=== PATIENT | male | born 1985 | race Caucasian/White ===

== ENCOUNTER 2022-01-06 07:49 | Outpatient (CLI) | payer BC, SELFPAY ==
--- NOTE | ~2022-01-06 | XR_ITS ---
EXAMINATION: XR UGIAC w small bowel DATE: 01/06/2022 08:58 INDICATION: Epigastric abdominal pain. TECHNIQUE: The patient drank thick barium, gas-producing crystals, and thin barium. Fluoroscopy of th e esophagus, stomach, and small bowel was performed. Fluoroscopy exposure time was 0.8 minutes. Radio graphs of the abdomen were obtained. The total number of images was 497. COMPARISON: CT abdomen and pelvis 06/20/2018 FINDINGS: UPPER GASTROINTESTINAL SERIES: There is no mass or stricture of the esophagus. Esophageal motility is normal. There is no hiatal her davida. There was no gastroesophageal reflux with provocative maneuvers. The stomach shows a normal fold ing pattern. SMALL BOWEL SERIES: The small bowel shows a normal folding pattern. Specifically, the terminal ileum is normal. Transit t hemant to the colon was 30 minutes. IMPRESSION: 1. Normal upper gastrointestinal series. 2. Normal small bowel series. Reviewed, dictated and finalized at location A.
[2022-01-06 09:53] LABS: Basophils Percent Auto 0.7 % (0.2-1.2); Eosinophils Absolute Auto 0.3 K/mm3 (0-0.3); Eosinophils Percent Auto 5.3 % (0-4.4); Hematocrit 44.1 % (42.0-52.0); Hemoglobin 15.5 g/dL (14.0-18.0); Immature Granulocyte Absolute 0.02 K/mm3 (0.00-0.031); Immature Granulocyte Percent A 0.4 % (0-0.5); Lymphocytes Absolute Auto 1.98 K/mm3 (0.9-3.2); Lymphocytes Percent Auto 35.9 % (18.3-44.2); Mean Corpuscular HGB Conc 35.1 g/dl (32-36); Mean Corpuscular Volume 88.2 fl (80-100); Monocytes Absolute Auto 0.4 K/mm3 (0.1-0.6); Neutrophils Absolute Auto 2.8 K/mm3 (1.3-6.7); Neutrophils Percent Auto 49.7 % (45.5-73.1); Platelet Count Result 157 k/mm3 (150-375); Red Cell Distribution Width 12.5 % (11.5-14.5); White Blood Count 5.5 K/mm3 (4.5-10.0)
[2022-01-06 10:07] LABS: Appearance Urine Clear (Clear); Bilirubin Urine Negative (Negative); Blood Urine Negative (Negative); Color Urine Yellow (Yellow); Glucose Urine UA Negative (Negative); Ketones Urine Negative (Negative); Leukocyte Esterase Ur Negative LEU/UL (Negative); Nitrate Urine Negative (Negative); Protein Urine Negative (Negative); Urobilinogen Urine 0.2 mg/dL (<2.0)
[2022-01-06 10:11] LABS: Alanine Aminotransferase 37 U/L (6-50); Albumin Level 4.6 g/dL (3.5-5.1); Alkaline Phosphatase 64 U/L (38-126); Amylase 67 U/L (30-110); Anion Gap 12 mmol/L (8-16); Aspartate Amino Transferase 29 U/L (17-59); Bilirubin,Total 0.9 mg/dL (0.2-1.3); Blood Urea Nitrogen 8 mg/dL (9-20); Calcium 8.8 mg/dL (8.4-10.2); Carbon Dioxide 33 mmol/L (22-30); Chloride 98 mmol/L (98-107); Cholesterol 183 mg/dL (0-200); Estimated Glomerular Filt Rate > 60; Glucose 101 mg/dL (65-110); HDL Direct 56 mg/dL; Lipase 31 U/L (23-300); Potassium 4.2 mmol/L (3.4-5.0); Sodium 143 mmol/L (137-145); Triglycerides 250 mg/dL (<150)
[2022-01-06 10:12] LABS: Add Urine Microscopic? NO
[2022-01-06 10:22] LABS: LDL Cholesterol Direct 90 mg/dL
[2022-01-06 10:41] LABS: Free T4 Free Thyroxine 0.86 ng/mL (0.78-2.19); Vitamin D 25 Hydroxy 47.3 ng/mL
[2022-01-06 10:46] LABS: IFOB Positive Control Positive; Immunochemical Fecal Occult Bl Negative (N)
[2022-01-12 12:21] LABS: Testosterone Total 315 ng/dL (250-1100)
== END 2022-01-06 07:50 | disposition home or self-care (01) ==
PROVIDERS: PCP Internal Medicine; Visit Provider Internal Medicine
DX: R10.13 Epigastric pain (principal)
CPT/HCPCS: 36415; 74246; 74248; 80053; 80061; 81003; 82150; 82274; 82306; 83690; 83993; 84403; 84439; 84443; 85025; 87015; 87045; 87177; 87207; 87209; 87269; 87272; 87427; 87493; 89055

== ENCOUNTER 2022-01-12 09:08 | Outpatient (NON) | payer BC, SELFPAY ==
[2022-01-12 12:36] LABS: IFOB Positive Control Positive; Immunochemical Fecal Occult Bl Negative (N)
== END 2022-01-12 09:09 | disposition home or self-care (01) ==
PROVIDERS: PCP Internal Medicine; Visit Provider Internal Medicine
DX: A04.5 Campylobacter enteritis (principal)
CPT/HCPCS: 82274; 87015; 87045; 87177; 87207; 87209; 87269; 87272; 87427; 89055

== ENCOUNTER 2022-11-21 11:55 | Outpatient (CLI) | payer BC, SELFPAY ==
[2022-11-21 12:18] LABS: Basophils Percent Auto 0.7 % (0.2-1.2); Eosinophils Absolute Auto 0.3 K/mm3 (0-0.3); Eosinophils Percent Auto 4.4 % (0-4.4); Hematocrit 46.7 % (42.0-52.0); Hemoglobin 16.4 g/dL (14.0-18.0); Immature Granulocyte Absolute 0.01 K/mm3 (0.00-0.031); Immature Granulocyte Percent A 0.2 % (0-0.5); Lymphocytes Percent Auto 37.7 % (18.3-44.2); Mean Corpuscular HGB Conc 35.1 g/dl (32-36); Mean Corpuscular Hemoglobin 31.1 pg (26-34); Mean Corpuscular Volume 88.6 fl (80-100); Mean Platelet Volume 11.2 fl (7.4-10.4); Monocytes Absolute Auto 0.5 K/mm3 (0.1-0.6); Monocytes Percent Auto 7.9 % (2.6-8.5); Neutrophils Percent Auto 49.1 % (45.5-73.1); Platelet Count Result 161 k/mm3 (150-375); Red Blood Count 5.27 M/mm3 (4.6-6.20); Red Cell Distribution Width 12.3 % (11.5-14.5); White Blood Count 6.1 K/mm3 (4.5-10.0)
[2022-11-21 12:19] LABS: Appearance Urine Clear (Clear); Bilirubin Urine Negative (Negative); Blood Urine Negative (Negative); Color Urine Yellow (Yellow); Glucose Urine UA Negative (Negative); Ketones Urine Negative (Negative); Leukocyte Esterase Ur Negative LEU/UL (Negative); Nitrate Urine Negative (Negative); Protein Urine Negative (Negative); Specific Grav Ur 1.004 (1.001-1.035); Urobilinogen Urine 0.2 mg/dL (<2.0); pH Urine 7.5 (5.0-9.0)
[2022-11-21 12:31] LABS: Add Urine Microscopic? NO
[2022-11-21 12:53] LABS: Alanine Aminotransferase 53 U/L (6-50); Albumin Level 4.8 g/dL (3.5-5.1); Alkaline Phosphatase 60 U/L (38-126); Amylase 71 U/L (30-110); Anion Gap 5 mmol/L (8-16); Aspartate Amino Transferase 35 U/L (17-59); Bilirubin,Total 1.1 mg/dL (0.2-1.3); Blood Urea Nitrogen 14 mg/dL (9-20); Calcium 9.5 mg/dL (8.4-10.2); Carbon Dioxide 35 mmol/L (22-30); Chloride 100 mmol/L (98-107); Cholesterol 180 mg/dL (0-200); Estimated Glomerular Filt Rate > 60; Glucose 93 mg/dL (65-110); HDL Direct 53 mg/dL; Lipase 31 U/L (23-300); Potassium 4.4 mmol/L (3.4-5.0); Sodium 140 mmol/L (137-145); Triglycerides 189 mg/dL (<150)
[2022-11-21 13:03] LABS: LDL Cholesterol Direct 88 mg/dL
== END 2022-11-21 11:56 | disposition home or self-care (01) ==
PROVIDERS: PCP Internal Medicine; Visit Provider Internal Medicine
DX: R07.89 Other chest pain (principal); A04.5 Campylobacter enteritis; F41.1 Generalized anxiety disorder; R10.13 Epigastric pain; K21.9 Gastro-esophageal reflux disease without esophagitis; Z68.27 Body mass index [BMI] 27.0-27.9, adult
CPT/HCPCS: 36415; 80053; 80061; 81003; 82150; 82306; 83690; 84439; 84443; 85025

== ENCOUNTER 2024-02-29 08:34 | Outpatient (CLI) | payer BC, SELFPAY ==
--- NOTE | ~2024-02-29 | XR_ITS ---
XR elbow LT min 3V 02/29/2024 08:44 Indication: Left elbow pain Procedure: 4 views left elbow Comparison: No prior studies for comparison. Findings: There is anatomic alignment. No fracture, subluxation or dislocation. No joint effusion. Pr ominent osteophyte of the olecranon process. Impression: 1: No significant bone or joint abnormality. Reviewed, dictated and finalized at location B. Impression: 1: No significant bone or joint abnormality.
== END 2024-02-29 08:35 | disposition home or self-care (01) ==
PROVIDERS: PCP Internal Medicine; Visit Provider Internal Medicine
DX: M25.522 Pain in left elbow (principal)
CPT/HCPCS: 73080

== ENCOUNTER 2025-02-10 14:39 | Outpatient (CLI) | payer SELFPAY ==
--- OUTSIDE RECORDS SUMMARY | 2024-09-05 04:30 | XMS_ITS ---
Author Organization [facility] Address [address] [place] [address] Care Team Providers Care Junior Paralegal Name Role Phone Bryce Temple MD Primary Care Provider Unavaila NILTON Matos Unavailable [phone] Encounters Encounter Location Date Provider Diagnosis [facility] [address] [place] [address] 09/05/2024 NILTON CLEARY Plan Of Treatment No Information Progress Notes * Alfreda ALVARENGAOB:1985 ( 40 yo M)Acc No.[id number]:09/05/2024 Progress Notes Patient: Sky Parks Provider: Asim Cleary MD :1985 A ge:39 Y S ex:Male Date:09/05/2024 Address:[address] [facility] Pcp:Bryce Temple MD * Electronic signature of ADIA CLEARY MD on 02/10/2025 at 03:53 PM CDT Sign off status: Pending * Provider: Asim Cleary MD Date: 0 09/05/2024 Generated for Rolando burger/Reggie/eTransmitting on: 1 03:53 PM CDT
[2025-02-10 15:52] LABS: Hematocrit 44.5 % (42.0-52.0); Hemoglobin 15.4 g/dL (14.0-18.0); Immature Granulocyte Percent A 0.3 % (0-0.5); Lymphocytes Absolute Auto 2.46 K/mm3 (0.9-3.2); Mean Corpuscular HGB Conc 34.6 g/dl (32-36); Mean Corpuscular Hemoglobin 30.5 pg (26-34); Mean Corpuscular Volume 88.1 fl (80-100); Nucleated Red Blood Cells Absolute Auto 0.000 K/mm3 (0.0-0.012); Nucleated Red Blood Cells Perc 0.0 % (0.0-0.2); Platelet Count Result 171 k/mm3 (150-375); Red Blood Count 5.05 M/mm3 (4.6-6.20); White Blood Count 7.9 K/mm3 (4.5-10.0)
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
--- OUTSIDE RECORDS SUMMARY | 2025-02-10 15:54 | XMS_ITS | Clinical Summary ---
Author Organization [facility] Address [address] [place] [address] Care Team Providers Care Grading Supervisor Name Role Phone Bryce Temple MD Primary Care Provider [phone] Source Comments [facility],non-owned Affiliates and Associated Physician Practices is amultiple site organization consisting of ambulatory clinics and hospital sitesin [place], [place], [place] and [place]. This disclosure is being madepursuant to the Care Everywhere program and may not contain all information available regarding this patient. Last updated 18.[facility] Allergies Active Allergy Reactions Criticality Noted Date Comments Ciprofloxacin Itching Low 02/16/2020 Naproxen Other Low 01/22/2020 Medications * Be aware that medications may not be up to date on this document. Alwaysverify current medications with the patient. fluticasone propionate (FLONASE) 50 MCG/ACT nasal spray Taylor 1 spray into each nostril once daily as needed Active Cyanocobalamin (VITAMIN B12) 100 MCG Active Albion-3 Fatty Acids (FISH OIL) 1000 MG capsule Take by mouth as needed Active Cholecalciferol (VITAMIN D3) 10 MCG (400 UNIT) Activ e omeprazole EC (PRILOSEC OTC) 20 MG tablet Take 10 mg by mouth once daily 07/01/2020 Active Magnesium 100 MG Take by mouth as needed Active Cannabinoids (THC FREE) 20 MG/ML LIQD Take by mouth at bedtime Active Active Problems Problem Noted Date Diagnosed Date Gastroesophageal reflux disease without esophagi tis 11/08/2019 Eczema 11/08/2019 Family History Medical History Relation Name Comments Pulmonary Embolism Father Arthritis - Rheumatoid Mother Heart Failure Mother Cancer - Colon Paternal Grandfather Relation Name Status Comments Brother Alive Father Mother Alive Paternal Grandfather Alive Social History Tobacco Use Types Packs/Day Years Used Date Smoking Tobacco: Some Days Cigarettes Smokeless Tobacco: Never Alcohol Use Standard Drinks/Week Comments Yes 0 (1 standard drink = 0.6 oz pur e alcohol) socially Sex and Gender Information Value Date Recorded Sex Assigned at Not on file Legal Sex Male 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 Gender Identity Not on file Sexual Orientation Not on file Last Filed Vital Signs Vital Sign Reading Time Taken Comments Blood Pressure 110/60 02/02/2021 10:16 AM CDT Pulse 87 02/02/2021 10:16 AM CDT Temperature 36.7 C (98.1 F) 02/02/2021 10:16 AM CDT Respiratory Rate 18 09/29/2020 2:11 PM CDT Oxygen Saturation 97% 02/02/2021 10:16 AM CDT Inhaled Oxygen Concentration - - Weight 83.6 kg (184 lb 6.4 oz) 02/02/2021 10:16 AM CDT Height 175.3 cm (5' 9) 09/29/2020 2:11 PM CDT Body Mass Index 27.23 09/29/2020 2:11 PM CDT Plan of Treatment Health Maintenance Due Date Last Done Comments LIPID TESTING 1985 HIV SCREENING 02/05/2000 HEPATITIS C SCREENING 01/31/2003 DTAP/TDAP/TD VACCINES (1 - Tdap) 02/05/2004 HEPATITIS B VACCINE (1 of 3 - 19+ 3-dose series) 02/05/2004 HPV VACCINE (1 - 3-dose SCDM series) 02/05/2012 DEPRESSION SCREENING 05/07/2024 COVID-19 VACCINE (3 - 2024-2 6 season) 2025 09/21/2020, 08/31/2020 INFLUENZA VACCINE (#1) 2025 ZOSTER VACCINE (1 of 2) 2035 HIB VACCINE Aged Out No longer eligi ble based on patient's age to complete this topic MENINGOCOCCAL (Group B) VACCINE SHARED DECISION-MAKING Aged Out No longer eligible based on patient's age to complete this topic MENINGOCOCCAL GROUPS A/C/Y/W VACCINE Aged Out No longer eligible b ased on patient's age to complete this topic PNEUMOCOCCAL VACCINE Aged Out No long er eligible based on patient's age to complete this topic Insurance ANTHEM ANTHEM Care Teams Grading Supervisor Relationship Specialty Start Date End Date Bryce Temple MD PCP - General 07/20/20
--- OUTSIDE RECORDS SUMMARY | 2025-02-10 15:54 | XMS_ITS | Patient Health Record ---
Author Organization [facility] Address [address] [place] [address] Care Team Providers Care Clinic Lpn Name Role Phone Bryce Temple MD Primary Care Provider NILTON Meadows Unavailable [phone] Allergies No Known Allergies Reason For Referral No Information Medications Medication SIG (Take, Route, Frequency, Duration) Notes Start Date End Date Status Omeprazole 20 MG Capsule Delayed Release 1 capsule 1/2 to 1 hour before morning meal Orally Once a day Active Social History Tobacco Use: Social History Observation Description Date Details (start date - stop date) Never Smoker NA - NA Social History Drugs/Alcohol: Social Info Question Answer Notes Caffeine Intake: 1-2 cups per day Tobacco Use: Social Info Question Answer Notes Tobacco Control (Standard) Tobacco use: Nonsmoker Additional Details Category Social Info Options Details Drugs/Alcohol: Do you smoke marijuana? De nies Do you drink alcohol? Yes, BEER 8 CUPS A WEEK Problems Problem Type SNOMED Code ICD Code Onset Dates Problem Status W/U Status Risk Notes Problem Ataxic gait (37889584) Ataxic gait (R26.0) Active confirmed Problem Obesity (776806094) Class 1 obesity due to excess calories with serious comorbidity and body mass index (BMI) of 30.0 to 30.9 in adult (E66.09) Active confirmed Vital Signs Heart Rate 79 /min 09/05/2024 Respiratory Rate 16 /min 09/05/2024 Blood pressure diastolic 67 mm Hg 09/05/2024 Height 69 in 09/17/2024 Blood pressure systolic 132 mm Hg 09/05/2024 Weight 202 lbs 09/05/2024 BMI 29.83 kg/m2 09/05/2024 Encounters Encounter Location Date Provider Diagnosis [facility] [address] [place] [address] 09/05/2024 NILTON CLEARY [address] [place] [address] 09/01/2024 NILTON EVIN Dizziness and giddiness R42 ; Class 1 obesity due to excess calories with serious comorbidity and body mass index (BMI) of 30.0 to 30.9 in adult E66.09 ; Family history of ischemic heart disease and other diseases of the circulatory system Z82.49 ; Dyspnea R06.00 and Ataxic gait R26.0 [facility] [address] [place] [address] 09/05/2024 NILTON EVIN Dizziness and giddiness R42 ; Class 1 obesity due to excess calories with serious comorbidity and body mass index (BMI) of 30.0 to 30.9 in adult E66.09 ; Family history of ischemic heart disease and other diseases of the circulatory system Z82.49 ; Dyspnea R06.00 and Ataxic gait R26.0 [facility] [address] [place] [address] 09/01/2024 NILTON EVIN [facility] [address] [place] [address] 09/17/2024 NILTON EVIN [facility] [address] [place] [address] 09/22/2024 NILTON EVIN Dyspnea R06.00 and Ataxic gait R26.0 Assessments Encounter Date Diagnosis (ICD Code) Assessment Notes Treatment Notes Treatment Clinical Notes Section Notes 09/01/2024 Dizziness and giddiness (ICD-10 - R42) ccheck carotids duplex,cimt 09/01/2024 Class 1 obesity due to excess calories with serious comorbidity and body mass index (BMI) of 30.0 to 30.9 in adult (ICD-10 - E66.09) 09/05/2024 Dizziness and giddiness (ICD-10 - R42) 09/22/2024 Dyspnea (ICD-10 - R06.00) 09/22/2024 Ataxic gait (ICD-10 - R26.0) 09/05/2024 Class 1 obesity due to excess calories with serious comorbidity and body mass index (BMI) of 30.0 to 30.9 in adult (ICD-10 - E66.09) 09/01/2024 Family history of ischemic heart disease and other diseases of the circulatory system (ICD-10 - Z82.49) Check extensive labs 09/01/2024 Dyspnea (ICD-10 - R06.00) eview other previous tests r 09/05/2024 Family history of ischemic heart disease and other diseases of the circulatory system (ICD-10 - Z82.49) 09/05/2024 Dyspnea (ICD-10 - R06.00) 09/01/2024 Ataxic gait (ICD-10 - R26.0) 09/05/2024 Ataxic gait (ICD-10 - R26.0) Carotids ok,But has relatively high risk cimt,will obtain labs,will need lifestyle changes Discussed weight management strategies including: Low carbohydrate, sugar and processed foods Adequate protein 30-40gm per meal High fiber diet 20-30gm/ day Water - 100-120oz daily Vegetables - 6servings/day. Increase aerobic and strength/resist ance exercise to the goal of 150min/week. Plan Of Treatment Pending Test Test Name Order Date Lipid Panel 09/22/2024 Galectin-3 09/22/2024 Insurance Providers Payer Name Payer Address Payer Phone Subscriber Number Group Number Insured Name Patient Relationship to Insured Coverage Start Date Coverage End Date [facility] [address] [place], [place] [id number] Sky Alvarenga Self - patient is the insured Medical (General) History Medical History History ICD Code ASTHMA Surgical History Surgery Date(Month/Year) STERNUM HERNIA SKIN GRAPH CLAVELE Z-PLASTY HYDROSEAL
--- OUTSIDE RECORDS SUMMARY | 2025-02-10 15:54 | XMS_ITS | Clinical Summary ---
Author Organization [facility] Address [address] [place] [address] Care Team Providers Care Vegetable Cutter Name Role Phone Unavailable Primary Care Provider Unavailabl e Social History Tobacco Use Types Packs/Day Years Used Date Smoking Tobacco: Never Assessed Sex and Gender Information Value Date Recorded Sex Assigned at Not on file Legal Sex Male 2:56 PM CDT Gender Identity Not on file Sexual Orientation Not on file Plan of Treatment Health Maintenance Due Date Last Done Comments Annual Physical 02/05/1988 Hepatitis C 2003 DTaP, Tdap and Td Vaccines ( 1 - Tdap) 02/05/2004 Hepatitis B Vaccines (1 of 3 - 19+ 3-dose series) 02/05/2004 HPV Vaccines (1 - 3-dose SCD M series) 02/05/2012 COVID-19 Vaccine (1 - 2023-2 5 season) 2025 Influenza Adult (#1) 2025 Meningococcal B Vaccine Aged Out No l onger eligible based on patient's age to complete this topic Meningococcal Vaccine Aged Out No hayden heron eligible based on patient's age to complete this topic Pneumococcal Vaccine: Pediat rics (0 to 5 Years) and At-Risk Patients (6 to 49 Years) Aged Out No longer eligible b ased on patient's age to complete this topic RSV Immunizations Under 20 Months Aged Out No longer eligible based on patient's age to complete this topic
--- OUTSIDE RECORDS SUMMARY | 2025-02-10 15:54 | XMS_ITS | Clinical Summary ---
Author Organization [facility] Address [address] [address] Phone Care Team Providers Care Car Rental Agency Manager Name Role Phone Provider, None Primary Care Provider Unavailabl e Allergies No known active allergies Medications No known medications Active Problems Problem Noted Date Diagnosed Date Hypertriglyceridemia 12/31/2015 Grieving 12/17/2015 Family History Medical History Relation Name Comments Diabetes Father Hypertension Father Relation Name Status Comments Father Mother Alive Social History Tobacco Use Types Packs/Day Years Used Date Smoking Tobacco: Never Alcohol Use Standard Drinks/Week Comments Yes 6 (1 standard drink = 0.6 oz pur e alcohol) Sex and Gender Information Value Date Recorded Sex Assigned at Not on file Legal Sex Male 12:03 AM CDT Gender Identity Not on file Sexual Orientation Not on file Last Filed Vital Signs Vital Sign Reading Time Taken Comments Blood Pressure 128/80 12/31/2015 1:07 PM CDT Pulse 76 12/31/2015 1:07 PM CDT Temperature 37.2 C (99 F) 12/31/2015 1:07 PM CDT Respiratory Rate 18 12/31/2015 1:07 PM CDT Oxygen Saturation 98% 12/31/2015 1:07 PM CDT Inhaled Oxygen Concentration - - Weight 93.9 kg (207 lb) 12/31/2015 1:07 PM CDT Height 175.3 cm (5' 9) 12/31/2015 1:07 PM CDT Body Mass Index 30.57 12/31/2015 1:07 PM CDT Plan of Treatment Health Maintenance Due Date Last Done Comments Hepatitis C Virus (HCV) Screening 1985 TdaP Immunization 1985 Hepatitis B Immunization (1 of 3 - 19+ 3-dose series) 02/05/2004 Human Papillomavirus (HPV) Immunization (1 - 3-dose SCDM series) 02/05/2012 Influenza Immunization (#1) 2025 SARS-COV-2 Immunization (1 - 2023- season) 2025 Respiratory Syncytial Virus (RSV) Immunization (Adult) (1 - 1-dose 75+ series) 02/05/2060 Meningococcal Immunization (ACWY) Aged Out No longer eligible based on patient's age to complete this topic Pneumococcal Immunization Combined Aged Out No longer eligible based on patient's age to complete this topic Rotavirus Immunization Aged Out No lo nger eligible based on patient's age to complete this topic Insurance [address] [facility] [address] Care Teams Car Rental Agency Manager Relationship Specialty Start Date End Date Provider, None [place] PCP - General 10/21/20
[2025-02-10 16:01] LABS: Alanine Aminotransferase 37 U/L (6-50); Albumin Level 4.8 g/dL (3.5-5.1); Alkaline Phosphatase 63 U/L (38-126); Anion Gap 8 mmol/L (4-12); Aspartate Amino Transferase 36 U/L (17-59); Bilirubin,Total 0.7 mg/dL (0.2-1.3); Blood Urea Nitrogen 15 mg/dL (9-20); Calcium 9.3 mg/dL (8.4-10.2); Carbon Dioxide 29 mmol/L (22-30); Chloride 102 mmol/L (98-107); Cholesterol 218 mg/dL (0-200); Estimated Glomerular Filt Rate > 60; Glucose 92 mg/dL (65-110); HDL Direct 63 mg/dL; Potassium 4.4 mmol/L (3.4-5.0); Sodium 139 mmol/L (137-145); Total Protein 7.7 g/dL (6.3-8.2); Triglycerides 224 mg/dL (<150)
== END 2025-02-10 14:40 | disposition home or self-care (01) ==
PROVIDERS: PCP Internal Medicine; Visit Provider Internal Medicine
DX: E78.5 Hyperlipidemia, unspecified (principal)
CPT/HCPCS: 36415; 80053; 80061; 85025